=== PATIENT | female | born 1950 | race Caucasian/White ===

== ENCOUNTER 2024-01-19 11:50 | Emergency (ER) | payer BC, MEDICAID ==
[~2024-01-19] VITALS: Ht 157.5 cm; Wt 62.7 kg
[2024-01-19] MEDS: ketorolac trometh 30MG/ML vial 30 MG/ML VIAL IM ONE (12:09)
[2024-01-19] MEDS: diazepam 5mg tablet PO ONE (12:11)
[2024-01-19 13:58] VITALS: BP 140/78; PULSE 74; RESP 16; TEMP 98.1; O2SAT 97
== END 2024-01-19 13:50 | disposition home or self-care (01) ==
LOC: ER 11:50
DX: M43.6 Torticollis (principal); M25.512 Pain in left shoulder; Z88.1 Allergy status to other antibiotic agents
CPT/HCPCS: 96372; 99283; J1885

== ENCOUNTER 2024-02-18 19:58 | Emergency (ER) | payer BC, MEDICAID ==
[~2024-02-18] VITALS: Ht 157.5 cm; Wt 61.4 kg
[2024-02-18 20:04] VITALS: BP 128/72; PULSE 83; TEMP 98.3; O2SAT 99
[2024-02-18] MEDS: ondansetron 4mg rapidly disintigrating tab PO ONE (22:39)
[2024-02-18] MEDS: ketorolac trometh 15mg/ml vial 15 MG/ML ML IM ONE (22:39)
[2024-02-18 22:40] VITALS: RESP 16
[2024-02-18] MEDS: HYDROcodone/acetaminophen 5mg/325mg tablet PO ONE (22:40)
== END 2024-02-18 23:05 | disposition home or self-care (01) ==
LOC: ER 19:59
DX: R51.9 Headache, unspecified (principal); M79.10 Myalgia, unspecified site; M54.2 Cervicalgia; M25.511 Pain in right shoulder; Z88.1 Allergy status to other antibiotic agents
CPT/HCPCS: 70450; 96372; 99285; J1885